=== PATIENT | female | born 1950 | race Caucasian/White ===

== ENCOUNTER 2022-12-24 11:15 | Day surgery (SDC) | payer OTHER ==
[2022-12-18 13:02] VITALS: BMI 39.6
[2022-12-24] MEDS ORDERED: MIDAZOLAM HCL 2 MG/2 ML SINGLE DOSE VIAL ONE (11:48)
[2022-12-24] MEDS ORDERED: PROPOFOL 20 ML ONE ×2 (11:48→13:31)
[2022-12-24] MEDS ORDERED: ROPIVACAINE HCL 0.5% 30ML VIAL ONE (11:50)
[2022-12-24] MEDS ORDERED: ONDANSETRON 4 MG/2 ML VIAL IVPUSH PRN (14:12)
[2022-12-24] MEDS ORDERED: oxyCODONE HCL 5 MG TABLET PO PRN (14:12)
[2022-12-24] MEDS ORDERED: LACTATED RINGERS SOLUTION 1,000 ML IV SCH (14:15)
[2022-12-24 14:20] VITALS: TEMP 97
[2022-12-24 15:25] VITALS: RESP 19
[2022-12-24 15:29] VITALS: BP 142/77; PULSE 70
== END 2022-12-24 15:29 | disposition home or self-care (01) ==
LOC: FASU 11:15
PROVIDERS: ATTEND Orthopaedic Surgery Hand Surgery
PROC: 0LN50ZZ Release Right Lower Arm and Wrist Tendon, Open Approach (ICD-10-PCS; 2022-12-24)
PROC: 0PSH04Z Reposition Right Radius with Internal Fixation Device, Open Approach (ICD-10-PCS; principal; 2022-12-24 13:25)
DX: S52.571A Other intraarticular fracture of lower end of right radius, initial encounter for closed fracture (principal); X58.XXXA Exposure to other specified factors, initial encounter; Y93.9 Activity, unspecified; Y92.9 Unspecified place or not applicable
CPT/HCPCS: 25290; 25609; C1713; 73110-TC-RT-FY; 94760